=== PATIENT | female | born 1985 | race Caucasian/White ===

== ENCOUNTER 2020-02-05 10:59 | Emergency (ER) | payer MEDICAID ==
[~2020-02-05] VITALS: Ht 165.1 cm; Wt 67.0 kg
[2020-02-05] MEDS ORDERED: SODIUM CHLORIDE 0.9% 1,000 ML IV ONE (11:30)
[2020-02-05 12:01] LABS: BASOPHILS % 0.4 % (0.0-2.0); EOSINOPHILS % 0.3 % (0.0-5.0); HEMATOCRIT. 35.9 % (36.0-48.0); HEMOGLOBIN. 12.3 g/dL (12.0-16.0); LYMPHOCYTES % 9.8 % (20.0-50.0); MEAN CORPUSCULAR HEMOGLOBIN 30.7 pg (28.0-32.0); MEAN CORPUSCULAR VOLUME 89.3 fL (81.0-99.0); MEAN PLATELET VOLUME 11.4 fl (7.4-10.4); MONOCYTES % 4.5 % (2.0-8.0); PLATELET 162 x1000/uL (130-400); RED BLOOD CELL COUNT 4.02 mill/uL (4.2-5.4); RED CELL DISTRIBUTION WIDTH 12.9 % (11.6-14.6)
[2020-02-05 12:09] LABS: CHLORIDE 107 mEq/L (98-107)
[2020-02-05 12:12] LABS: INR 0.9; PROTHROMBIN TIME 9.9 sec (9.6-11.0)
[2020-02-05 12:31] LABS: HCG SCREEN POSITIVE
[2020-02-05 13:11] LABS: B-HCG QUANTITATIVE 101722 mIU/mL (<3)
[2020-02-05 13:55] VITALS: BP 108/66
== END 2020-02-05 14:01 | disposition home or self-care (01) ==
LOC: ER 11:33
DX: O20.0 Threatened abortion (principal); O34.82 Maternal care for other abnormalities of pelvic organs, second trimester; N83.202 Unspecified ovarian cyst, left side; O26.892 Other specified pregnancy related conditions, second trimester; R03.0 Elevated blood-pressure reading, without diagnosis of hypertension; O09.522 Supervision of elderly multigravida, second trimester; Z3A.14 14 weeks gestation of pregnancy
CPT/HCPCS: 36415; 76801; 76817; 80053; 81025; 84702; 84703; 85025; 85610; 86850; 86900; 86901; 93005; 96360; 96361; 99285; J7030